=== PATIENT | female | born 1935 | race Caucasian/White ===

== ENCOUNTER 2017-08-29 09:04 | Inpatient (IN) | payer OTHER, BC ==
[2017-08-29] VITALS (7 sets, daily range): BP systolic 142–162; BP diastolic 59–100
[~2017-08-29] VITALS: Ht 154.9 cm; Wt 103.9 kg
--- NOTE | ~2017-08-29 | HC ---
[facility] [place] [address] CONSULTATION Name: CHADWICK COTA Room #: 355-P [facility] IN ..#: [id number] Admission: 08/29/17 Attend Phys: Scooter Reardon MD Discharge: Date of : 35 Report #: [id number] THIS REPORT FOR: //name// CC: Scooter Garnica DATE OF SERVICE: 08/29/2017 CHIEF COMPLAINT: Ulcerations bilateral lower extremities. HISTORY OF PRESENT ILLNESS: This is an 81-year-old female patient who is admitted with a history of known coronary artery disease and recent substernal chest pain. She is also noted to have multiple ulcerations on the lower extremities. I have been asked to see her with regard to wound care. PAST MEDICAL HISTORY: Positive for coronary artery disease, hypertension, hypercholesterolemia, cholecystectomy, hysterectomy, tonsillectomy. ALLERGIES: INCLUDE NORPACE, ENALAPRIL, LIPITOR, ZOCOR, ERYTHROMYCIN, DIGOXIN, VALACYCLOVIR, GABAPENTIN, METFORMIN, LEVAQUIN, ALL FORMS OF TAPE, GEMFIBROZIL, FENOFIBRATE, PROPRANOLOL, INDOCIN, ELAVIL, DOXEPIN, PROMETHAZINE. SOCIAL HISTORY: No history of alcohol or tobacco use. FAMILY HISTORY: Positive for cancer and a perceived stroke. REVIEW OF SYSTEMS: CONSTITUTIONAL: The patient denies fever, chills or weight loss. NEUROLOGICAL: The patient denies focal weakness, numbness, or tingling. EYES: The patient denies visual changes, redness or drainage. ENT: The patient denies earache, nasal drainage, or sore throat. CARDIOVASCULAR: The patient has had recent chest pain, although does not have any presently. Denies palpitations or diaphoresis. PULMONARY: The patient denies cough or shortness of breath. GASTROINTESTINAL: The patient denies nausea, vomiting, diarrhea, or abdominal pain. ORTHOPEDIC: The patient notes some ulcerations of both lower extremities with swelling. Other systems in a 14-point review of systems are negative. PHYSICAL EXAMINATION: VITAL SIGNS: At this time include pulse 88, respirations 16, blood pressure 162/100, temperature 98.1. GENERAL: This is a chronically ill-appearing female patient, appears to be in minimal distress. HEENT: Normocephalic. NECK: Supple. [address] [address] CONSULTATION Name: CHADWICK COTA Room #: 355[facility] IN .R.#: [id number] Admission: 08/29/17 Attend Phys: Scooter Reardon MD Discharge: Date of : 35 Report #: [id number] LUNGS: Clear. HEART: Regular rhythm. ABDOMEN:. Bowel sounds present. EXTREMITIES: Examination of the lower extremities demonstrate 2+ to 3+ edema bilaterally. There is minimal erythema. She has multiple ulcerations on the dorsal aspect of the right foot and great toe as well as the left anterolateral ankle. These all appear to be relatively superficial and showing some signs of epithelization. There is no evidence of obvious infection at this time. CLINICAL IMPRESSION: 1. Ulcerations, bilateral lower extremities that appear to be venous stasis type ulcerations. 2. Lower extremity edema, likely venous insufficiency, with a more predominant component of lymphedema. 3. Coronary artery disease. RECOMMENDATIONS: At this point in time, we will recommend topical Xeroform gauze to the areas that are open, followed by Kerlix and Naman wraps from toes to knees to provide gentle compression and edema reduction. The patient is agreeable to current plan of care. We will recommend nutritional support to maximize wound healing. Continue all current medications. <ELECTRONICALLY SIGNED> By: Khai Evangelista MD 08/30/17 0755 [id number] 08 Khai Evangelista MD /nt
--- NOTE | ~2017-08-29 | EKG ---
[address] [address] ELECTROCARDIOGRAM REPORT Name: COTATIRSOCass Flores Room #: 355-[facility] IN .R.#: [id number] Admission: 08/29/17 Attend Phys: Scotoer Reardon MD Discharge: Date of : 35 Report #: [id number] THIS REPORT FOR: //name// [facility] Test Date: 2017-08-29 Test Time: 13:24:28 Pat Name: CHADWICK COTA Department: Room: 355 Gender: F Nurses Director: Nilson LEE : 1935 Requested By: Gisella Gorman Order Number: [id number] MD: Eloy Oliver Measurements Intervals [place] Rate: 90 P: 34 CA: 168 QRS: 21 QRSD: 84 T: 157 QT: 363 QTc: 444 Interpretive Statements Sinus rhythm Abnormal R-wave progression, early transition Borderline repolarization abnormality Compared to ECG 08/14/2016 06:29:49 Atrial premature complex(es) no longer present Electronically Signed On 09-01-2017 13:23:02 CDT by Eloy Oliver [email or web address] <ELECTRONICALLY SIGNED> By: Eloy Oliver MD, [facility] 09/01/17 1323 1324 1324 Eloy Oliver MD, [facility] /EPI
--- NOTE | ~2017-08-29 | 2DMMODE ---
[facility] [address] [place] [address] 2 D/M-MODE ECHOCARDIOGRAM Name: CHADWICK COTA Room #: 355-P [facility] IN [facility]#: [id number] Admission: 08/29/17 Attend Phys: Scooter Reardon MD Discharge: Date of : 35 Date of Service: 09/03/17 1220 Report #: [id number] THIS REPORT FOR: //name// APPROVED REPORT Study performed: 09/03/2017 10:56:40 EXAM: Comprehensive 2D, Doppler, and color-flow Echocardiogram Patient Location: Bedside Room #: [facility] Status: routine BSA: 1.98 HR: 62 bpm BP: 186/78 mmHg Other Information Study Quality: Adequate Indications Diabetes CAD Hypertension/HDD 2D Dimensions RVDd: 36.53 mm LVOT Diam: 19.52 (18-24mm) IVC: 25.00 mm Volumes Left Atrial Volume (Systole) Single Plane 4CH: 127.61 mL Single Plane 2CH: 138.96 mL LA ESV Index: 74.00 mL/m2 Aortic Valve AoV Peak Rambo.: 2.10 m/s AO Peak Gr.: 17.70 mmHg LVOT Max P.36 mmHg AO Mean Gr.: 9.35 mmHg LVOT Mean P.49 mmHg AO V2 Mean: 1.44 m/s LVOT Max V: 1.04 m/s AO V2 VTI: 51.99 cm LVOT Mean V: 0.73 m/s SHARRON (VTI): 1.50 cm2 LVOT V1 VTI: 26.16 cm SHARRON Vmax: 1.48 cm2 SV (LVOT): 78.21 mL Mitral Valve [facility] [email or web address] [place] [address] 2 D/M-MODE ECHOCARDIOGRAM Name: CIPRIANOTIRSOCass Flores Room #: 355-P [facility]#: [id number] Admission: 08/29/17 Attend Phys: Scooter Reardon MD Discharge: Date of : 35 Date of Service: 09/03/17 1220 Report #: [id number] E/A Ratio: 1.3 MV Decel. Time: 137.88 ms MV E Max Rambo.: 1.14 m/s MV A Rambo.: 0.91 m/s MV PHT: 39.99 ms IVRT: 101.50 ms Pulmonary Valve PV Peak Rambo.: 1.03 m/s PV Peak Gr.: 4.26 mmHg Pulmonary Vein P Vein S: 0.52 m/s P Vein A: 0.32 m/s P Vein D: 0.48 m/s P Vein A Dur.: 143.0 msec P Vein S/D Ratio: 1.08 Tricuspid Valve TR Peak Rambo.: 3.35 m/s TR Peak Gr.: 44.86 mmHg PA Pressure: 55.00 mmHg Left Ventricle The left ventricle is normal size. There is normal left ventricular wall thickness. The left ventricular systolic function is normal. The left ventricular ejection fraction is within the normal range. LVEF is 55-60%. The left ventricular diastolic function is normal. Right Ventricle The right ventricle is normal size. The right ventricular systolic function is normal. Atria Left atrium is dilated. Right atrium is dilated. Aortic Valve The aortic valve is normal in structure. Aortic valve is calcified. Trace aortic regurgitation. Mild aortic stenosis. Mitral Valve The mitral valve is normal in structure. Mild mitral regurgitation. No evidence of mitral valve stenosis. Tricuspid Valve The tricuspid valve is normal in structure. There is mild tricuspid regurgitation. Estimated PAP 55 mmHg. There is moderate pulmonary hypertension. [address] [address] 2 D/M-MODE ECHOCARDIOGRAM Name: CHADWICK COTA Room #: 355-P [facility] IN [facility]#: [id number] Admission: 08/29/17 Attend Phys: Scooter Reardon MD Discharge: Date of : 35 Date of Service: 09/03/17 1220 Report #: [id number] Pulmonic Valve The pulmonary valve is normal in structure. There is no pulmonic valvular regurgitation. Great Vessels The aortic root is normal in size. IVC is dilated and collapses <50% with inspiration. Pericardium There is no pericardial effusion. <Conclusion> The left ventricle is normal size. LVEF is 55-60%. The left ventricular diastolic function is normal. The right ventricle is normal size. Left atrium is dilated. Right atrium is dilated. The aortic valve is normal in structure. Aortic valve is calcified. Mild aortic stenosis. Mild aortic stenosis. Mild mitral regurgitation. There is mild tricuspid regurgitation. Estimated PAP 55 mmHg. There is moderate pulmonary hypertension. IVC is dilated and collapses <50% with inspiration. There is no pericardial effusion. <ELECTRONICALLY SIGNED> By: Jose Sweet MD, FACC 09/03/17 1220 1220 1220 Jose Sweet MD, FACC /INF
--- NOTE | ~2017-08-29 | EKG ---
[address] [address] ELECTROCARDIOGRAM REPORT Name: CHAWDICK COTA Room #: 355-[facility] IN .R.#: [id number] Admission: 08/29/17 Attend Phys: Scooter Reardon MD Discharge: 09/03/17 Date of : 35 Report #: [id number] THIS REPORT FOR: //name// [facility] Test Date: 2017-09-03 Test Time: 09:08:21 Pat Name: CHADWICK COTA Department: Room: 355 Gender: F Senior Counsel Commercial: : 1935 Requested By: Mike Odell Order Number: [id number] MD: Eloy Oliver Measurements Intervals [place] Rate: 63 P: 49 CO: 173 QRS: 19 QRSD: 114 T: -11 QT: 492 QTc: 504 Interpretive Statements Sinus rhythm Nonspecific ST and T wave abnormality Prolonged QT interval Compared to ECG 08/29/2017 13:24:28 Early R-wave progression no longer present Electronically Signed On 09-03-2017 19:24:23 CDT by Eloy Oliver [email or web address] <ELECTRONICALLY SIGNED> By: Eloy Oliver MD, [facility] 09/03/17 1924 [id number] 0908 Eloy Oliver MD, [facility] /EPI
[~2017-08-29 09:04] MED LIST: ACETAMINOPHEN-1 EAC1; ALLOPURINOL 10100 M1 PO; AMLODIPINE BESY10 MG PO; ASPIR 8181 MG PO; ASPIRIN325 PO; CARDIZEM CD240 MG PO; CELEXA 20 MG TA20 M1 PO; CELEXA20 MG PO; CIPRO250 M1 PO; CLOPIDOGREL75 MG PO; CRESTOR5 MG PO; EFFIENT10 MG PO; HYDROCODONE-AP1 EAC6 PO; KLOR-CON 1010 MEQ PO; LASIX 20 MG TAB20 MG PO; LASIX 40 MG TAB40 M1 PO; LEVOTHYROXIN0.088 MG PO; LIVALO2 MG PO; LOPRESSOR 50 MG50 M1 PO; LOPRESSOR25 PO; METOPROLOL SUCC25 M1 PO; NITROGLYCERIN0.4 MG SUBLING; NITROQUICK0.4 MG SL; ONDANSETRON HCL4 M2 PO; PANTOPRAZOLE SO40 M1 PO; PRILOSEC 20 MG20 MG PO; PRINIVIL20 MG PO; PRINIVIL5 MG PO; PROTONIX40 M2 PO; SYNTHROID75 MCG PO; ZYRTEC10 M2 PO
[2017-08-29 12:45] LABS: ABSOLUTE NEUTROPHILS 12.7 thou/uL (1.4-8.2); BASOPHILS 0.6 % (0.0-2.0); EOSINOPHILS 0.9 % (0.0-3.0); HEMOGLOBIN 7.7 gm/dL (12.0-15.0); LYMPHOCYTES 5.2 % (24.0-44.0); MCH 28.9 pg (26.0-34.0); MCHC 31.9 g/dL (28.0-37.0); MCV 90.4 fL (80.0-100.0); PLATELET COUNT 286 thou/uL (150-400); POLYS 88.3 % (36.0-66.0); RBC 2.65 mil/uL (4.20-5.00); RDW 15.8 % (10.5-14.5); WBC 14.4 thou/uL (4.0-11.0)
[2017-08-29 13:03] LABS: PROTIME 10.5 Seconds (9.3-11.4)
[2017-08-29 13:32] LABS: CALCIUM 8.5 mg/dL (8.5-10.1); CREATININE 1.4 mg/dL (0.6-1.0)
[2017-08-29 13:50] LABS: CHOLESTEROL 108 mg/dL (<200); HDL CHOLESTEROL 49 mg/dL (>40); LDL CHOLESTEROL 39 mg/dL (<100); TC:HDL 2.2 Ratio (Not establshd); TRIGLYCERIDE 102 mg/dL (<150); TROPONIN-I < 0.04 ng/mL (<0.06); VLDL 20 mg/dL (<40)
[2017-08-29 22:20] LABS: HEMATOCRIT 24.7 % (37.0-47.0)
[2017-08-30] VITALS (9 sets, daily range): BP systolic 112–145; BP diastolic 44–75
[2017-08-30 00:28] LABS: HEMATOCRIT 21.7 % (37.0-47.0); HEMOGLOBIN 7.2 gm/dL (12.0-15.0)
[2017-08-30 06:19] LABS: HEMOGLOBIN 6.6 gm/dL (12.0-15.0)
[2017-08-30 12:47] LABS: HEMATOCRIT 18.6 % (37.0-47.0); HEMOGLOBIN 6.1 gm/dL (12.0-15.0)
[2017-08-30 23:13] LABS: HEMATOCRIT 21.9 % (37.0-47.0); HEMOGLOBIN 7.4 gm/dL (12.0-15.0)
[2017-08-31] VITALS (7 sets, daily range): BP systolic 89–144; BP diastolic 31–65
[2017-09-01 03:45] VITALS: BP 140/60
[2017-09-01 07:59] LABS: HEMATOCRIT 21.9 % (37.0-47.0); HEMOGLOBIN 7.4 gm/dL (12.0-15.0); MCH 30.3 pg (26.0-34.0); MCHC 33.7 g/dL (28.0-37.0); RBC 2.43 mil/uL (4.20-5.00); RDW 15.8 % (10.5-14.5); WBC 8.8 thou/uL (4.0-11.0)
[2017-09-01 08:10] LABS: ALBUMIN 2.1 g/dL (3.4-5.0); CREATININE 1.4 mg/dL (0.6-1.0); POTASSIUM 3.5 mmol/L (3.5-5.1); TOTAL BILIRUBIN 0.3 mg/dL (<0.1-1.0); TOTAL PROTEIN 5.3 g/dL (6.4-8.2)
[2017-09-01 08:21] VITALS: BP 162/86
[2017-09-01 11:21] VITALS: BP 153/62
[2017-09-01 15:31] VITALS: BP 138/53
[2017-09-01 19:05] VITALS: BP 158/46
[2017-09-02 03:58] VITALS: BP 157/70
[2017-09-02 05:54] LABS: HEMATOCRIT 23.3 % (37.0-47.0); HEMOGLOBIN 7.8 gm/dL (12.0-15.0); MCH 30.2 pg (26.0-34.0); MCHC 33.5 g/dL (28.0-37.0); RBC 2.59 mil/uL (4.20-5.00); WBC 10.7 thou/uL (4.0-11.0)
[2017-09-02 06:03] LABS: ALBUMIN 2.2 g/dL (3.4-5.0); CALCIUM 8.2 mg/dL (8.5-10.1); CREATININE 1.2 mg/dL (0.6-1.0); POTASSIUM 3.6 mmol/L (3.5-5.1); TOTAL BILIRUBIN 0.3 mg/dL (<0.1-1.0); TOTAL PROTEIN 5.7 g/dL (6.4-8.2)
[2017-09-02 07:30] VITALS: BP 154/63
[2017-09-02 12:17] VITALS: BP 187/67
[2017-09-02 17:36] VITALS: BP 184/91
[2017-09-02 19:55] VITALS: BP 171/79
[2017-09-02 23:35] VITALS: BP 149/71
[2017-09-03 04:25] VITALS: BP 163/65
[2017-09-03 06:48] LABS: ABSOLUTE NEUTROPHILS 6.6 thou/uL (1.4-8.2); BASOPHILS 0.6 % (0.0-2.0); EOSINOPHILS 7.3 % (0.0-3.0); HEMATOCRIT 24.5 % (37.0-47.0); HEMOGLOBIN 8.2 gm/dL (12.0-15.0); LYMPHOCYTES 13.7 % (24.0-44.0); MCH 30.2 pg (26.0-34.0); MCHC 33.5 g/dL (28.0-37.0); MCV 89.9 fL (80.0-100.0); MONOCYTES 8.6 % (1.0-8.0); PLATELET COUNT 244 thou/uL (150-400); POLYS 69.8 % (36.0-66.0); RBC 2.73 mil/uL (4.20-5.00); WBC 9.4 thou/uL (4.0-11.0)
[2017-09-03 06:55] LABS: CALCIUM 8.8 mg/dL (8.5-10.1); CREATININE 1.2 mg/dL (0.6-1.0); POTASSIUM 3.6 mmol/L (3.5-5.1)
[2017-09-03 07:54] VITALS: BP 186/78
[2017-09-03 11:26] VITALS: BP 183/92
[2017-09-03 15:07] VITALS: BP 166/65
[2018-02-13] MEDS ORDERED: MELATONIN3 MG PO (07:56)
[2018-02-13] MEDS ORDERED: PRINIVIL20 MG PO (07:56)
[2018-02-13] MEDS ORDERED: PEPCID20 MG PO (08:00)
[2018-02-13] MEDS ORDERED: OCUVITE EYE +1 EACH PO (08:00)
[2018-02-13] MEDS ORDERED: ONDANSETRON HCL4 M2 PO (08:01)
[2018-02-13] MEDS ORDERED: BACTRIM DS TAB1 EACH PO (08:01)
[2018-02-13] MEDS ORDERED: NORVASC5 MG PO (08:03)
[2018-02-13] MEDS ORDERED: LISINOPRIL20 MG PO (08:03)
[2018-02-13] MEDS ORDERED: NORCO 5-325 TA1 EACH PO (08:04)
[2018-02-14] MEDS ORDERED: CLOPIDOGREL75 MG PO (08:08)
[2018-02-14] MEDS ORDERED: ASPIR-TRIN325 MG PO (08:10)
== END 2017-09-03 18:19 | DRG 377 ==
LOC: 3W 09:04
PROVIDERS: Hospitalist; Internal Medicine Gastroenterology; Nurse Practitioner
PROC: 30233N1 Transfusion of Nonautologous Red Blood Cells into Peripheral Vein, Percutaneous Approach (ICD-10-PCS; principal; 2017-08-30)
PROC: 02HV33Z Insertion of Infusion Device into Superior Vena Cava, Percutaneous Approach (ICD-10-PCS; 2017-08-30)
DX: K57.33 Diverticulitis of large intestine without perforation or abscess with bleeding (principal); E43 Unspecified severe protein-calorie malnutrition; N39.0 Urinary tract infection, site not specified; N17.9 Acute kidney failure, unspecified; Z68.41 Body mass index [BMI] 40.0-44.9, adult; D62 Acute posthemorrhagic anemia; L03.116 Cellulitis of left lower limb; I87.2 Venous insufficiency (chronic) (peripheral); I25.10 Atherosclerotic heart disease of native coronary artery without angina pectoris; M19.90 Unspecified osteoarthritis, unspecified site; E03.9 Hypothyroidism, unspecified; E11.42 Type 2 diabetes mellitus with diabetic polyneuropathy; I89.0 Lymphedema, not elsewhere classified; I50.9 Heart failure, unspecified; I48.0 Paroxysmal atrial fibrillation; I11.0 Hypertensive heart disease with heart failure; E66.9 Obesity, unspecified; S09.90XA Unspecified injury of head, initial encounter; W18.39XA Other fall on same level, initial encounter; Y93.89 Activity, other specified; Y92.89 Other specified places as the place of occurrence of the external cause; Y99.8 Other external cause status; Z88.0 Allergy status to penicillin; Z91.010 Allergy to peanuts; Z79.899 Other long term (current) drug therapy; Z90.49 Acquired absence of other specified parts of digestive tract; Z88.1 Allergy status to other antibiotic agents; Z88.8 Allergy status to other drugs, medicaments and biological substances; Z82.3 Family history of stroke; Z90.710 Acquired absence of both cervix and uterus; Z95.5 Presence of coronary angioplasty implant and graft
CPT/HCPCS: 10879; 27000

== ENCOUNTER 2018-03-23 18:22 | Inpatient (IN) | payer OTHER, BC ==
[~2018-03-23] VITALS: Ht 154.9 cm; Wt 113.4 kg
--- NOTE | ~2018-03-23 | P ---
[facility] [place] [address] PROCEDURE REPORT Name: CHADWICK COTA Mark Room #: 203[facility] M.R.#: [id number] Admission: 03/23/18 Attend Phys: Link Lizarraga Discharge: Date of : 35 Report #: [id number] THIS REPORT FOR: //name// CC: Ward Ramirez BRIEF HISTORY: The patient is an 82-year-old woman with rectal bleeding. Colonoscopy recently completed revealed blood throughout the entire colon plus blood in the ileum. Therefore, small bowel endoscopy was recommended for further evaluation. PREOPERATIVE DIAGNOSIS: Gastrointestinal bleeding. POSTOPERATIVE DIAGNOSIS: Moderately large hiatus hernia with a paraesophageal component. MEDICATIONS: Deep sedation with propofol per anesthesia. SPECIMEN: None. ESTIMATED BLOOD LOSS: None. PROCEDURE: Small bowel endoscopy with deployment of a video small bowel capsules. FINDINGS: During the colonoscopy, we found evidence of blood in the small bowel and therefore during that procedure staff obtained consent from family for upper endoscopic evaluation. PHYSICAL EXAMINATION: With the patient in the left lateral decubitus position, the Olympus pediatric colonoscope was introduced under direct vision into the oropharynx. It was guided through the esophagus. Esophageal mucosa was normal. The GE junction was at about 33 cm and somewhat foreshortened and tortuous distally secondary to large hiatus hernia. Squamocolumnar junction was unremarkable. No strictures or masses were seen. The scope was advanced and she had a large hiatus hernia. Upon retroflexion, there was also a paraesophageal component and the hernia slides up along the side of the esophagus. The mucosa and hernia was unremarkable. No blood was seen. AVMs were not seen. Mass lesions were not seen. The scope was advanced into the distal stomach, was examined on end view as well as retroflexed views. The hiatus hernia was seen. No other abnormalities were identified. No blood was seen. No ulcers or AVMs were seen. Pylorus was normal. Examination of duodenal bulb revealed normal mucosa without evidence of bleeding or bleeding lesions. The scope was advanced to the entire duodenal sweep, beyond the ligament of Treitz and deeply into the jejunum. The scope was advanced its [facility] [address] [place] [address] PROCEDURE REPORT Name: CIPRIANOCHADWICK Mark Room #: 203[facility] .R.#: [id number] Admission: 03/23/18 Attend Phys: Link Lizarraga Discharge: Date of : 35 Report #: [id number] entire length and we obtained very good insertion to the jejunum today. At that point, the scope was withdrawn and careful circumferential views were obtained. The prep was good. The mucosa was within normal limits, normal vascular pattern, normal light reflex. Blood was not identified on this examination. No neoplastic or polypoid lesions were seen. AVMs were not seen. The scope was withdrawn. The patient tolerated the procedure well. Subsequently, the scope was fitted with the capsule delivering system and the prepared capsule was advanced endoscopically with an upper endoscope into the second portion of duodenum. The capsule was released. Good images were obtained. Scope was withdrawn. DISPOSITION: The patient with GI bleeding. Colonoscopy revealed evidence of blood in the distal small bowel. We will follow up on capsule study. Continue to monitor hemoglobin. We will discuss further with Dr. Ward Martínez. <ELECTRONICALLY SIGNED> By: Sanjeev Young MD 03/27/18 1220 1440 1947 Sanjeev Young MD /nt
--- NOTE | ~2018-03-23 | H ---
[facility] [address] [place] [address] HISTORY AND PHYSICAL Name: CHADWICK COTA Room #: 239-P ADM IN M.R.#: [id number] Admission: 03/23/18 Attend Phys: Link Lizarraga Discharge: Date of : 35 Report #: [id number] THIS REPORT FOR: //name// CC: Sharri Lizarraga ATTENDING PHYSICIAN: Link Lizarraga MD PRIMARY CARE PHYSICIAN: Unknown. CHIEF COMPLAINT: Rectal bleeding. HISTORY OF PRESENT ILLNESS: The patient is an 82-year-old female who was sent from [facility] for rectal bleeding. She apparently had been having mary blood per rectum 3 times since earlier this morning. Her first stool was blood mixed with stool, but after that was just this straight blood with some blood clots. She is on aspirin and Plavix due to significant cardiac history with multiple stents, as well as renal stents. She had an episode in ER at [place] when she got up to the commode, had another episode of rectal bleeding, but then had brief syncopal episode. She complains of feeling dizzy when she is sitting up. At baseline, she is nonambulatory. She was actually scheduled to have colonoscopy with her GI physician on 03/28 because they were concerned for colovaginal fistula. She has had GI bleed in the past, most recently in August of this year, in which she did require blood transfusion, as well as remote episode of GI bleeding about 5 or 6 years ago. She is feeling nauseated, but has not been having any vomiting. She is currently resting comfortably, in no acute distress. PAST MEDICAL HISTORY: Hypothyroidism, hypertension, hyperlipidemia, coronary artery disease, atrial fibrillation, GERD, diabetes type 2, which is diet controlled, depression, peripheral neuropathy, and chronic kidney disease stage 3. PAST SURGICAL HISTORY: Coronary stents times 6, bilateral renal stents, appendectomy, hysterectomy, tonsillectomy, left carpal tunnel release, bladder repair, bilateral breast lipoma removal, cholecystectomy, and left ankle repair. ALLERGIES: Extensive and include TYLENOL, AMPICILLIN, CHLORZOXAZONE, GABAPENTIN, GEMFIBROZIL, PENICILLINS, QUININE, ATORVASTATIN, ENALAPRIL, PROMETHAZINE, PROPOXYPHENE, DIGOXIN, ERYTHROMYCIN, FENOPROFEN CALCIUM, INDOMETHACIN, METFORMIN, MACRODANTIN, PAPAVERINE, RAMIPRIL, NORPACE, DOXEPIN, PROPRANOLOL, VALACYCLOVIR, IBUPROFEN, TERRAMYCIN, ELAVIL. HOME MEDICATIONS: Bactrim, unknown frequency; Plavix 75 mg daily, pitavastatin 4 mg daily, nitro p.r.n., Toprol-XL 25 mg daily, Norvasc 5 mg daily, lisinopril 20 mg daily, aspirin 325 mg daily, [place] 5/325 one tab q. 4 hours p.r.n. pain, Celexa 40 mg at bedtime, Lasix 40 mg p.o. daily, Zofran p.r.n., Pepcid 10 mg at [address] [address] HISTORY AND PHYSICAL Name: CHADWICK COTA Room #: 239-P [facility] IN ..#: [id number] Admission: 03/23/18 Attend Phys: Link Lizarraga Discharge: Date of : 35 Report #: [id number] bedtime, Protonix 40 mg daily, levothyroxine 88 mcg daily, allopurinol 100 mg b.i.d., melatonin 3 mg p.o. daily. SOCIAL HISTORY: The patient is mostly wheelchair bound. She states she can use a walker to transfer short distance. She is a never smoker, denies any alcohol or drug use. She has been living in a longterm facility for the last year. She is a full code. FAMILY HISTORY: Her sister had a stroke and her brother had of multiple blood clots. There is no blood or bleeding disorders. REVIEW OF SYSTEMS: A 12-point review of systems was reviewed with the patient, otherwise negative unless stated in the HPI. PHYSICAL EXAMINATION: GENERAL: The patient is an alert female in no acute distress. VITAL SIGNS: Temperature is 36.7, heart rate 83, respirations 16, blood pressure 124/56, oxygen 100% on 2 L. HEENT: PERRLA. Sclerae are nonicteric. Oral mucosa is pink and moist. NECK: Supple, no JVD noted. CARDIAC: Normal S1, S2. No murmurs, rubs or gallops. RESPIRATORY: Breath sounds are clear in bilateral upper lobes, diminished in the bases. Breathing is nonlabored. ABDOMEN: Obese, soft, and nondistended. She is slightly tender in the lower abdomen. Bowel sounds are positive. VASCULAR: 2+ bilateral lower extremity edema. Pedal pulses are 2+. NEUROLOGIC: The patient is alert and oriented times 3. Speech is clear. She is moving all extremities equally. There is some generalized lower extremity weakness, but no focal weakness noted. MUSCULOSKELETAL: She does have deformity of the left ankle. SKIN: Pale, but intact with a few scattered bruises, no open wounds or rashes. LABORATORY DATA AND DIAGNOSTICS: Blood work obtained at [place] showed a WBC of 9.8. Initial hemoglobin was 7.9 and a few hours later was down to 6.9, platelets 324. Sodium 136, potassium 4.1, BUN 49, creatinine 1.2, and glucose is 118. LFTs are within normal limits. Lipase is 19. TSH level is 5.13. INR 1.1. CT of the abdomen showed no free air or obstruction. There was a large hiatal hernia. There was mild acute diverticulitis in the proximal sigmoid colon. There was redemonstration of the finding of suspicion for colocolonic or colovesical or colovaginal fistula and there is a left posterolateral margin of the urinary bladder, which may involve this area of fistula. ASSESSMENT AND PLAN: 1. Gastrointestinal bleed. Hemoglobin upon arrival is now down to 5.7. Unfortunately, she has been unable to receive any blood transfusions since she has an antibody. She has now been typed and screened and we are awaiting [address] [address] HISTORY AND PHYSICAL Name: CHADWICK COTA Room #: 239-P [facility] IN [facility].#: [id number] Admission: 03/23/18 Attend Phys: Link Lizarraga Discharge: Date of : 35 Report #: [id number] units of blood. We will then follow hemoglobin and hematocrit levels q. 6 hours. She has not had any further bleeding since arrival, so we will hold off on any bleeding scan. Gastrointestinal is consulted. Because the CT did mention possible diverticulitis, we will add Cipro and Flagyl. 2. Acute blood loss anemia. The patient is being transfused with 2 units of blood once we are able to get correct blood with antibodies. Her last known hemoglobin was 9.0 in 01/2018. 3. Possible diverticulitis. The patient was given Invanz at [place]. We will change antibiotics to Cipro and Flagyl. Rectal bleeding may be due to diverticular bleed. 4. Possible rectal fistula. This was mentioned on CT. The patient states she has been told in the past that there may be a fistula there and she was supposed to have an outpatient colonoscopy. 5. Diabetes type 2, currently diet controlled. Since she is n.p.o., we will add sliding scale insulin and follow Accu-Cheks. 6. Deep venous thrombosis prophylaxis. Place sequential compression devices. We will continue to follow the patient closely throughout the hospitalization and make changes based on clinical status. <ELECTRONICALLY SIGNED> By: MOISES Viramontes 03/25/18 0220 0442 0541 MOISES Viramontes /nt
--- NOTE | ~2018-03-23 | P ---
[facility] [place] [address] PROCEDURE REPORT Name: CHADWICK COTA Mark Room #: 203-P [facility] IN M.R.#: [id number] Admission: 03/23/18 Attend Phys: Link Lizarraga Discharge: Date of : 35 Report #: [id number] THIS REPORT FOR: //name// CC: Ward Ramirez BRIEF HISTORY: The patient is an 82-year-old woman who presented with rectal bleeding. She had an episode of rectal bleeding this August and a CTA and nuclear medicine scans were nondiagnostic. She has required multiple transfusions. A CT suggests a colovesical fistula. She is known to have diverticular disease and was treated for diverticulitis in January of this year per her report. She has continued to have rectal bleeding. PREOPERATIVE DIAGNOSIS: Recurrent rectal bleeding. POSTOPERATIVE DIAGNOSES: 1. Colon polyps. 2. Moderately severe diverticulosis coli. 3. Blood within the terminal ileum suggestive of proximal gastrointestinal bleeding source. MEDICATIONS: Deep sedation with propofol for anesthesia. SPECIMENS: 1. Colon polyp from proximal ascending colon. 2. Cecal polyp. ESTIMATED BLOOD LOSS: 3 mL related to procedure. PROCEDURE: Colonoscopy to cecum and terminal ileum with snare polypectomy and biopsy. FINDINGS: Prior to propofol sedation, procedure of colonoscopy discussed with the patient. Family was present. They all indicate they desire that we proceed. DESCRIPTION OF PROCEDURE: With the patient in the left lateral decubitus position, digital examination was completed. Anal verge was covered with blood. A digital exam revealed dark blood on the examining digit. Subsequently, the Olympus video colonoscope was introduced in the rectum, advanced under direct vision. Immediately upon entering the rectum, liquid blood and scattered clots were seen. We very carefully advanced the scope through irrigating vigorously with the water jet as well as Mylicon solution. We were successful in advancing the scope into the proximal colon into the cecum. It was noted there was red to dark red blood throughout the entire colon including the cecum. We were able to [facility] [address] [place] [address] PROCEDURE REPORT Name: CHADWICK COTA Room #: 203-P [facility] IN M.R.#: [id number] Admission: 03/23/18 Attend Phys: Lnik Lizarraga Discharge: Date of : 35 Report #: [id number] identify the ileocecal valve and advance the scope across the ileocecal valve and in the distal terminal ileum. Darkish red blood was seen as well. We advanced the scope probably 25 cm or more into the distal ileum and blood was seen. However, an active bleeding site could not be identified. At that point, the scope was slowly withdrawn and careful circumferential views were obtained. Again, there was blood in the ileum, but an active bleeding site was not seen. The scope was withdrawn in the cecum and was cleaned up as well as possible and a 4 mm sessile polyp was seen and removed by cold biopsy forceps. Scope was further withdrawn in the proximal ascending colon, a flat 8 mm polyp was seen and removed by cold snare polypectomy. Again, the entire colon was coated with blood and clot. As we withdrew the scope, we cleaned up as well as possible and a large amount of bloody material was removed. However, in some areas, particularly the left colon, there were clots which prohibited complete suctioning. At no time during this exam, did we identify active bleeding. The scope was withdrawn into the left colon, in particular the sigmoid colon. There was moderately severe diverticular disease. Again, active bleeding was not seen. There was also evidence of a colovesical fistula on CT, but a fistula was not clearly identified on exam today. Also, she has a Barrera catheter in. We did not observe any blood or air going to do her Barrera bag. It was noted that there was moderate edema of the folds in the distal sigmoid. A CT suggested diverticulitis, but there was no endoscopic evidence of diverticulitis on exam today. The scope was withdrawn in the rectum and was cleaned up as well as possible. There was some clot in the rectum. Upon retroflexion, no abnormalities were seen. Scope was withdrawn and the patient tolerated the procedure well. DISPOSITION: The patient with GI bleeding. Our initial thought was she was having a diverticular bleed. However, with the findings on colonoscopy, there is evidence of upper GI source. Therefore, we will proceed with small bowel endoscopy at this time from above. Also, consider deploying an M2 capsule if bleeding site is not identified. We will discuss with Dr. Martínez. <ELECTRONICALLY SIGNED> By: Sanjeev Young MD 03/27/18 1220 1416 29 Sanjeev Young MD /nt
--- NOTE | ~2018-03-23 | EKG ---
[address] [address] ELECTROCARDIOGRAM REPORT Name: CHADWICK COTA Room #: 203- ADM IN M.R.#: [id number] Admission: 03/23/18 Attend Phys: Link Lizarraga Discharge: Date of : 35 Report #: [id number] THIS REPORT FOR: //name// [facility] Test Date: 2018-03-27 Test Time: 09:30:37 Pat Name: CHADWICK COTA Department: Room: 203 P Gender: F Hat Binder: Nilson LEE : 1935 Requested By: Lorelei Fried Order Number: [id number] MD: Gerson Reveles Measurements Intervals Morrill Rate: 72 P: 19 MO: 186 QRS: 13 QRSD: 80 T: 30 QT: 500 QTc: 548 Interpretive Statements Sinus rhythm Abnormal R-wave progression, early transition Compared to ECG 02/14/2018 07:56:08 ST (T wave) deviation no longer present Electronically Signed On 03-28-2018 8:15:48 CDT by Gerson Reveles [email or web address] <ELECTRONICALLY SIGNED> By: Gerson Reveles MD 03/28/18814 9 9 Gerson Reveles MD /JOSE
--- NOTE | ~2018-03-23 | PATH ---
[facility] [address] [place] [address] PATHOLOGY RPT PROCEDURE Name: CIPRIANOTIRSOCass Flores Room #: 203-P [facility] IN M.R.#: [id number] Admission: 03/23/18 Date of : 35 Discharge: 03/31/18 Report #: [id number] Path Case #: [id number] [facility] Accession Number: [id number] . 01 Material submitted: . PART A: PROXIMAL ASCENDING COLON POLYP PART B: CECAL POLYP . 01 Clinical history: . Pre-op diagnosis: GI bleed Post-op diagnosis: Colon polyp, diverticulosis . 02 Diagnosis: A. Polyp, proximal ascending colon polyp, endoscopic biopsy: - Tubular adenoma. - Negative for high-grade dysplasia. . B. Polyp, cecal polyp, endoscopic biopsy: - Tubular adenoma. - Negative for high-grade dysplasia. . (IUV:nahomy; 03/27/2018) MBR/03/27/2018 . 02 Electronically signed: . Renetta Burris MD, Pathologist NPI- [id number] . 01 Gross description: . A. The specimen is received in formalin, labeled "Chadwick Cota, proximal ascending colon polyp". Received is a segment of pale lopez soft tissue measuring 0.7 cm in maximum dimensions. The specimen is submitted entirely in cassette A1. . B. The specimen is received in formalin, labeled "Chadwick Cota, cecal polyp biopsy". Received is a segment of pale lopez soft tissue measuring 0.3 cm in maximum dimensions. The specimen is submitted entirely in cassette B1. (CAA; 03/26/2018) QAC/QAC . 02 Pathologist provided ICD-10: D12.2, D12.0 . 02 CPT . 644537, 329308 Specimen Comment: A courtesy copy of this report has been sent to Specimen Comment: [phone], , [place] [address] PATHOLOGY RPT PROCEDURE Name: CHADWICK COTA Room #: 203-P [facility] IN M.R.#: [id number] Admission: 03/23/18 Date of : 35 Discharge: 03/31/18 Report #: [id number] Path Case #: [id number] Specimen Comment: Report sent to ,DR CORTES / DR LECHUGA Specimen Comment: A duplicate report has been generated due to demographic updates. Performed at: [address], [place], [place] [id number] MD Naveen Owen MD Phone: [phone] Performed at: [address] [id number] MD Renetta Burris MD Phone: [phone]
[~2018-03-23 18:22] MED LIST changes: +ASPIR-TRIN325 MG PO; +BACTRIM DS TAB1 EACH PO; +LISINOPRIL20 MG PO; +MELATONIN3 MG PO; +NORCO 5-325 TA1 EACH PO; +NORVASC5 MG PO; +OCUVITE EYE +1 EACH PO; +PEPCID20 MG PO
[2018-03-23 22:45] VITALS: BP 124/56
[2018-03-23 23:00] VITALS: BP 114/44
[2018-03-23 23:11] LABS: HEMATOCRIT 17.3 % (37.0-47.0); HEMOGLOBIN 5.7 gm/dL (12.0-15.0)
[2018-03-24] VITALS (26 sets, daily range): BP systolic 97–157; BP diastolic 29–68
[2018-03-24 02:06] LABS: URINE BILIRUBIN NEGATIVE (Negative); URINE BLOOD 2+ (Negative); URINE CLARITY CLEAR; URINE COLOR YELLOW; URINE GLUCOSE-RANDOM* NEGATIVE (Negative); URINE KETONES NEGATIVE (Negative); URINE PROTEIN (DIPSTICK) NEGATIVE (Negative); URINE SPECIFIC GRAVITY 1.015 (1.005-1.035); URINE UROBILINOGEN 0.2 E.U./dl (0.2-1.0)
[2018-03-24 02:08] LABS: URINE LEUKOCYTES-REFLEX 2+ (Negative); URINE NITRITE-REFLEX POSITIVE (Negative)
[2018-03-24 02:18] LABS: SQUAMOUS 0-3 Few /LPF (0-3)
[2018-03-24 02:19] LABS: CASTS None Seen /LPF (None Seen); CRYSTALS None Seen /LPF (None Seen); URINE RBC 0-2 Rare /HPF (0-2); URINE WBC-REFLEX 6-15 Few /HPF (0-5)
[2018-03-24 07:09] LABS: HEMATOCRIT 21.8 % (37.0-47.0); HEMOGLOBIN 7.4 gm/dL (12.0-15.0); MCH 30.8 pg (26.0-34.0); MCHC 33.8 g/dL (28.0-37.0); MCV 91.1 fL (80.0-100.0); RBC 2.39 mil/uL (4.20-5.00); RDW 15.6 % (10.5-14.5); WBC 8.8 thou/uL (4.0-11.0)
[2018-03-24 07:21] LABS: ALBUMIN 1.9 g/dL (3.4-5.0); CALCIUM 7.7 mg/dL (8.5-10.1); CREATININE 1.2 mg/dL (0.6-1.0); POTASSIUM 4.1 mmol/L (3.5-5.1); TOTAL BILIRUBIN 0.3 mg/dL (<0.1-1.0); TOTAL PROTEIN 4.7 g/dL (6.4-8.2)
[2018-03-24 17:14] LABS: HEMATOCRIT 19.8 % (37.0-47.0); HEMOGLOBIN 6.6 gm/dL (12.0-15.0)
[2018-03-25] VITALS (33 sets, daily range): BP systolic 64–165; BP diastolic 22–72
[2018-03-25 04:53] LABS: MCV 90.6 fL (80.0-100.0); WBC 9.4 thou/uL (4.0-11.0)
[2018-03-25 04:54] LABS: HEMOGLOBIN 6.7 gm/dL (12.0-15.0); MCH 30.9 pg (26.0-34.0); MCHC 34.2 g/dL (28.0-37.0); RBC 2.15 mil/uL (4.20-5.00); RDW 14.9 % (10.5-14.5)
[2018-03-25 04:58] LABS: CALCIUM 7.5 mg/dL (8.5-10.1); MAGNESIUM 1.7 mg/dL (1.8-2.4); POTASSIUM 4.1 mmol/L (3.5-5.1)
[2018-03-25 05:03] LABS: HEMATOCRIT 19.5 % (37.0-47.0)
[2018-03-25 12:35] LABS: HEMATOCRIT 26.8 % (37.0-47.0)
[2018-03-25 12:39] LABS: HEMOGLOBIN 9.1 gm/dL (12.0-15.0)
[2018-03-26 03:29] LABS: HEMATOCRIT 21.7 % (37.0-47.0); HEMOGLOBIN 7.4 gm/dL (12.0-15.0); MCH 30.3 pg (26.0-34.0); MCHC 34.1 g/dL (28.0-37.0); MCV 88.8 fL (80.0-100.0); RBC 2.44 mil/uL (4.20-5.00); RDW 15.1 % (10.5-14.5); WBC 10.4 thou/uL (4.0-11.0)
[2018-03-26 03:39] LABS: ALBUMIN 1.8 g/dL (3.4-5.0); CALCIUM 7.9 mg/dL (8.5-10.1); PHOSPHORUS 2.5 mg/dL (2.5-4.9); POTASSIUM 3.5 mmol/L (3.5-5.1)
[2018-03-26 04:31] VITALS: BP 121/37
[2018-03-26 08:55] VITALS: BP 114/36
[2018-03-26 12:15] VITALS: BP 141/53
[2018-03-26 15:21] VITALS: BP 148/46
[2018-03-26 15:45] LABS: HEMATOCRIT 23.6 % (37.0-47.0); HEMOGLOBIN 8.2 gm/dL (12.0-15.0)
[2018-03-26 17:11] VITALS: BP 148/46
[2018-03-26 19:47] VITALS: BP 152/59
[2018-03-27] VITALS (7 sets, daily range): BP systolic 101–137; BP diastolic 44–79
[2018-03-27 03:24] LABS: HEMOGLOBIN 6.7 gm/dL (12.0-15.0); MCH 30.8 pg (26.0-34.0); MCHC 34.4 g/dL (28.0-37.0); MCV 89.4 fL (80.0-100.0); RBC 2.17 mil/uL (4.20-5.00); RDW 14.9 % (10.5-14.5); WBC 7.7 thou/uL (4.0-11.0)
[2018-03-27 03:28] LABS: HEMATOCRIT 19.4 % (37.0-47.0)
[2018-03-27 13:09] LABS: % SATURATION 8 % (20-39); IRON 13 ug/dL (50-170); TIBC 155 ug/dL (250-450)
[2018-03-27 13:25] LABS: FOLIC ACID 16.5 ng/mL (8.6-58.9)
[2018-03-27 17:01] LABS: HEMATOCRIT 22.6 % (37.0-47.0); HEMOGLOBIN 7.7 gm/dL (12.0-15.0)
[2018-03-28 00:05] VITALS: BP 163/82
[2018-03-28 03:44] LABS: HEMATOCRIT 24.1 % (37.0-47.0)
[2018-03-28 05:07] VITALS: BP 159/72
[2018-03-28 07:50] VITALS: BP 159/75
[2018-03-28 11:28] VITALS: BP 128/76
[2018-03-28 15:17] VITALS: BP 160/60
[2018-03-28 19:53] VITALS: BP 181/79
[2018-03-28 19:55] LABS: HEMATOCRIT 26.2 % (37.0-47.0)
[2018-03-29 04:56] VITALS: BP 180/73
[2018-03-29 07:35] VITALS: BP 160/85
[2018-03-29 11:30] VITALS: BP 168/83
[2018-03-29 15:20] VITALS: BP 157/85
[2018-03-29 19:21] VITALS: BP 165/72
[2018-03-30 04:26] VITALS: BP 153/57
[2018-03-30 04:38] LABS: HEMATOCRIT 26.2 % (37.0-47.0); HEMOGLOBIN 8.8 gm/dL (12.0-15.0); MCH 30.4 pg (26.0-34.0); MCHC 33.8 g/dL (28.0-37.0); RBC 2.91 mil/uL (4.20-5.00); RDW 15.4 % (10.5-14.5); WBC 9.4 thou/uL (4.0-11.0)
[2018-03-30 04:46] LABS: ALBUMIN 2.2 g/dL (3.4-5.0); CALCIUM 7.8 mg/dL (8.5-10.1); CREATININE 0.9 mg/dL (0.6-1.0); PHOSPHORUS 2.7 mg/dL (2.5-4.9); POTASSIUM 3.8 mmol/L (3.5-5.1)
[2018-03-30 07:25] VITALS: BP 169/67
[2018-03-30 11:35] VITALS: BP 158/63
[2018-03-30 15:30] VITALS: BP 173/68
[2018-03-30 19:35] VITALS: BP 171/65
[2018-03-31 00:33] VITALS: BP 157/66
[2018-03-31 04:36] VITALS: BP 174/62
[2018-03-31 06:51] LABS: HEMATOCRIT 24.2 % (37.0-47.0); HEMOGLOBIN 8.1 gm/dL (12.0-15.0); MCH 30.1 pg (26.0-34.0); MCHC 33.3 g/dL (28.0-37.0); MCV 90.3 fL (80.0-100.0); RBC 2.68 mil/uL (4.20-5.00); RDW 15.4 % (10.5-14.5); WBC 7.4 thou/uL (4.0-11.0)
[2018-03-31 07:00] LABS: CALCIUM 7.7 mg/dL (8.5-10.1); CREATININE 0.9 mg/dL (0.6-1.0); MAGNESIUM 1.2 mg/dL (1.8-2.4); POTASSIUM 3.7 mmol/L (3.5-5.1)
[2018-03-31 07:30] VITALS: BP 166/76
[2018-03-31] MEDS ORDERED: AUGMENTIN 875-1 EACH PO (10:39)
[2018-03-31 12:30] VITALS: BP 160/71
[2018-03-31 15:45] VITALS: BP 169/80
== END 2018-03-31 19:03 | DRG 377 ==
LOC: ICU 18:22 → 2N 03-25 15:23
PROVIDERS: Hospitalist; Internal Medicine; Internal Medicine Gastroenterology; Nurse Practitioner Acute Care; Specialist
PROC: 30233N1 Transfusion of Nonautologous Red Blood Cells into Peripheral Vein, Percutaneous Approach (ICD-10-PCS; principal; 2018-03-24)
PROC: 0DBK8ZZ Excision of Ascending Colon, Via Natural or Artificial Opening Endoscopic (ICD-10-PCS; 2018-03-25)
PROC: 0DBH8ZZ Excision of Cecum, Via Natural or Artificial Opening Endoscopic (ICD-10-PCS; 2018-03-25)
PROC: 0DJ08ZZ Inspection of Upper Intestinal Tract, Via Natural or Artificial Opening Endoscopic (ICD-10-PCS; 2018-03-25)
DX: K57.31 Diverticulosis of large intestine without perforation or abscess with bleeding (principal); E43 Unspecified severe protein-calorie malnutrition; D62 Acute posthemorrhagic anemia; Z68.42 Body mass index [BMI] 45.0-49.9, adult; K63.2 Fistula of intestine; N39.0 Urinary tract infection, site not specified; E46 Unspecified protein-calorie malnutrition; E03.9 Hypothyroidism, unspecified; D12.2 Benign neoplasm of ascending colon; D12.0 Benign neoplasm of cecum; E78.5 Hyperlipidemia, unspecified; I25.10 Atherosclerotic heart disease of native coronary artery without angina pectoris; I12.9 Hypertensive chronic kidney disease with stage 1 through stage 4 chronic kidney disease, or unspecified chronic kidney disease; K21.9 Gastro-esophageal reflux disease without esophagitis; K44.9 Diaphragmatic hernia without obstruction or gangrene; E11.42 Type 2 diabetes mellitus with diabetic polyneuropathy; M19.90 Unspecified osteoarthritis, unspecified site; E66.01 Morbid (severe) obesity due to excess calories; M62.84 Sarcopenia; I48.0 Paroxysmal atrial fibrillation; E53.8 Deficiency of other specified B group vitamins; G47.00 Insomnia, unspecified; E83.42 Hypomagnesemia; M81.0 Age-related osteoporosis without current pathological fracture; B96.20 Unspecified Escherichia coli [E. coli] as the cause of diseases classified elsewhere; E11.22 Type 2 diabetes mellitus with diabetic chronic kidney disease; N18.3 Chronic kidney disease, stage 3 (moderate); F32.9 Major depressive disorder, single episode, unspecified; Z99.3 Dependence on wheelchair; Z95.5 Presence of coronary angioplasty implant and graft; Z90.49 Acquired absence of other specified parts of digestive tract; Z90.710 Acquired absence of both cervix and uterus; Z79.82 Long term (current) use of aspirin; Z79.899 Other long term (current) drug therapy; Z88.1 Allergy status to other antibiotic agents; Z88.0 Allergy status to penicillin; Z88.8 Allergy status to other drugs, medicaments and biological substances; Z82.3 Family history of stroke; Z83.2 Family history of diseases of the blood and blood-forming organs and certain disorders involving the immune mechanism
CPT/HCPCS: 10078; 10081; 27000; 62110; 62900; 70005

== ENCOUNTER 2019-07-05 14:43 | Inpatient (IN) | payer OTHER, BC ==
[~2019-07-05] VITALS: Ht 152.4 cm; Wt 112.5 kg
[~2019-07-05 14:43] MED LIST changes: +AUGMENTIN 875-1 EACH PO
[2019-07-05 16:20] VITALS: BP 179/77
[2019-07-05] MEDS ORDERED: SERTRALINE HCL100 MG PO (17:26)
[2019-07-05] MEDS ORDERED: MECLIZINE HCL25 M1 PO (17:28)
[2019-07-05] MEDS ORDERED: ARTIFICIAL TEAR1510 EA. EYE (17:33)
--- NOTE | 2019-07-05 18:58 | NUR ---
pt arrived to ccu 200 at 1605, assessed, vss, R AC peripheral line sl, started by EMS, pt A+OX4, ORIENTED TO ROOM, HOW TO USE CALL LIGHT, AND STAFF, PT VERBALIZED UNDERSTANDING. DR WILLS IN TO SEE PT, EXTERNAL CATH APPLIED PT IS INCONTINENT, CONSENTS REVIEWED AND SIGNED, CALL LIGHT IN PT'S HAND, WILL MONITOR
[2019-07-05 19:11] VITALS: BP 170/67
[2019-07-05 23:32] VITALS: BP 157/65
--- NOTE | 2019-07-06 03:02 | NUR ---
ASSUMED CARE FROM DAY SHIFT PT RESP IN BED INCONINTENT OF URINE WITH EXTERNAL FEMALE CATH.PT CHANGED BRYAN CARE GIVEN , DISUCSSED PLAN OF CARE AND VERBALIZED UNDERSTANDING AND AGREEEABLE. DNIES CHEST PAIN. C/O GENERAL PAIN , SPECIAL POLICE OFFICER SHOWS NSR. PT RESTED WELL THROUHGOUT HOURLY ROUNDS. ULTRAM GIVEN PO FORPAIN.
[2019-07-06 03:10] VITALS: BP 153/59
[2019-07-06 05:24] LABS: ALBUMIN 2.9 g/dL (3.4-5.0); ANION GAP 10 mmol/L (7-16); BUN 24 mg/dL (7-18); CALCIUM 9.1 mg/dL (8.5-10.1); CHLORIDE 104 mmol/L (98-107); CO2 26 mmol/L (21-32); CREATININE 1.6 mg/dL (0.6-1.0); GLUCOSE 99 mg/dL (74-106); PHOSPHORUS 3.8 mg/dL (2.5-4.9); POTASSIUM 4.3 mmol/L (3.5-5.1); SODIUM 140 mmol/L (136-145); TROPONIN-I <0.06 ng/mL (<0.06)
[2019-07-06 07:10] VITALS: BP 178/59
[2019-07-06 14:45] VITALS: BP 145/51
--- NOTE | 2019-07-06 14:58 | 2DMMODE ---
[facility] [place] [address] 2 D/M-MODE ECHOCARDIOGRAM Name: CHADWICK COTA Room #: 200-I ADM IN [facility].#: [id number] Admission: 07/05/19 Attend Phys: Reji Loepz MD Discharge: Date of : 35 Report #: [id number] THIS REPORT FOR: //name// APPROVED REPORT Study performed: 07/06/2019 12:43:09 EXAM: Comprehensive 2D, Doppler, and color-flow Echocardiogram Patient Location: Bedside Room #: 200 Status: routine BSA: 2.05 HR: 66 bpm BP: 178/59 mmHg Rhythm: NSR Other Information Study Quality: Adequate Indications Diabetes CAD Chest Pain Hypertension/HDD 2D Dimensions RVDd: 40.14 mm IVSd: 10.93 (7-11mm) LVOT Diam: 18.94 (18-24mm) LVDd: 48.19 mm PWd: 10.53 (7-11mm) Ascending Ao: 33.72 (22-36mm) LVDs: 32.76 (25-40mm) Aortic Root: 33.08 mm IVC: 11.00 mm Volumes Left Atrial Volume (Systole) Single Plane 4CH: 147.96 mL Single Plane 2CH: 71.27 mL LA ESV Index: 55.00 mL/m2 Aortic Valve AoV Peak Rambo.: 2.01 m/s AO Peak Gr.: 16.22 mmHg LVOT Max P.79 mmHg AO Mean Gr.: 8.44 mmHg LVOT Mean P.14 mmHg AO V2 Mean: 1.33 m/s LVOT Max V: 1.19 m/s AO V2 VTI: 54.35 cm LVOT Mean V: 0.82 m/s SHARRON (VTI): 1.74 cm2 LVOT V1 VTI: 33.48 cm [facility] [place] [address] 2 D/M-MODE ECHOCARDIOGRAM Name: CHADWICK COTA Room #: 200-I [facility] IN ..#: [id number] Admission: 07/05/19 Attend Phys: Reji Lopez MD Discharge: Date of : 35 Report #: [id number] SHARRON Vmax: 1.66 cm2 SV (LVOT): 94.32 mL Mitral Valve E/A Ratio: 1.6 MV Decel. Time: 144.90 ms MV E Max Rambo.: 1.33 m/s MV A Rambo.: 0.82 m/s MV PHT: 42.02 ms IVRT: 83.04 ms Pulmonary Valve PV Peak Rambo.: 0.99 m/s PV Peak Gr.: 3.95 mmHg Pulmonary Vein P Vein S: 0.47 m/s P Vein A: 0.32 m/s P Vein D: 0.44 m/s P Vein A Dur.: 124.6 msec P Vein S/D Ratio: 1.07 Tricuspid Valve TR Peak Rambo.: 3.34 m/s TR Peak Gr.: 44.52 mmHg PA Pressure: 50.00 mmHg Left Ventricle The left ventricle is normal size. There is normal LV segmental wall motion. There is normal left ventricular wall thickness. The left ventricular systolic function is normal. The left ventricular ejection fraction is within the normal range. LVEF is 55-60%. The left ventricular diastolic function is abnormal. Right Ventricle The right ventricle is normal size. The right ventricular systolic function is normal. Atria Left atrium is dilated. Right atrium is dilated. Aortic Valve The aortic valve is normal in structure. Aortic valve is calcified. Trace to mild aortic regurgitation. Mild aortic stenosis.1.6cm2 Mitral Valve The mitral valve is normal in structure. Mild mitral regurgitation. No evidence of mitral valve stenosis. [facility] [address] [place] [address] 2 D/M-MODE ECHOCARDIOGRAM Name: CHADWICK COTA Room #: 200-I [facility] IN [facility]#: [id number] Admission: 07/05/19 Attend Phys: Reji Lopez MD Discharge: Date of : 35 Report #: [id number] Tricuspid Valve The tricuspid valve is normal in structure. There is mild tricuspid regurgitation. Estimated PAP 50 mmHg. There is moderate pulmonary hypertension. Pulmonic Valve The pulmonary valve is normal in structure. There is no pulmonic valvular regurgitation. Great Vessels The aortic root is normal in size. IVC is normal in size and collapses >50% with inspiration. Pericardium There is no pericardial effusion. <Conclusion> The left ventricle is normal size. LVEF is 55-60%. The left ventricular diastolic function is abnormal. The right ventricular systolic function is normal. Left atrium is dilated. Right atrium is dilated. The aortic valve is normal in structure. Aortic valve is calcified. Trace to mild aortic regurgitation. Mild aortic stenosis.1.6cm2 Mild mitral regurgitation. There is mild tricuspid regurgitation. Estimated PAP 50 mmHg. There is moderate pulmonary hypertension. The aortic root is normal in size. There is no pericardial effusion. <ELECTRONICALLY SIGNED> By: Jose Sweet MD, FACC 07/06/19 1458 1458 1458 Jose Sweet MD, FACC /INF
--- NOTE | 2019-07-06 16:19 | NUR ---
PT RESIDES AT [facility] FAXED CLINICAL UPDATE TO FACILITY SPOKE WITH HELIO AT FACILITY SHE RECEIVED UPDATE AND THAT WE ANTICIPATE DC TOMORROW. DP TO FOLLOW.
--- NOTE | 2019-07-06 18:41 | NUR ---
ASSUMED CARE 0700, A/OX4, FROM LTC/ASSITED LIVING. VS STABLE, DENIES SOB, DENIES CHEST PAIN. CHRONIC SHOULDER PAIN MANAGED WITH MEDICATIONS, XRAY OF SHOULD SHOW NO ACUTE FX. STRESS TEST COMPLETED TODAY, TRANSFERS TO COMMODE OR WHEELCHAIR WITH AX1, EXTERNAL FEMALE CATH IN PLACE, INCONTINENT OF BLADDER DUE TO LASIX, BM TODAY. VALERIE MISHRA TOMORROW. FALL PRECAUTIONS IN PLACE. CALLS FOR ASSISTANCE
[2019-07-06 19:53] VITALS: BP 169/58
[2019-07-07 00:23] VITALS: BP 179/69
[2019-07-07 03:56] LABS: URINE BILIRUBIN NEGATIVE (Negative); URINE BLOOD TRACE (Negative); URINE CLARITY CLEAR; URINE COLOR YELLOW; URINE GLUCOSE-RANDOM* NEGATIVE (Negative); URINE KETONES NEGATIVE (Negative); URINE LEUKOCYTES 3+ (Negative); URINE NITRITE NEGATIVE (Negative); URINE PROTEIN (DIPSTICK) NEGATIVE (Negative); URINE SPECIFIC GRAVITY 1.015 (1.005-1.035); URINE UROBILINOGEN 0.2 E.U./dl (0.2-1.0)
[2019-07-07 03:57] LABS: CASTS None Seen /LPF (None Seen); MUCUS 0-3 Light strn/LPF (None Seen); SQUAMOUS 0-3 Few /LPF (0-3); URINE RBC None Seen /HPF (0-2)
[2019-07-07 03:58] LABS: BACTERIA >30 Many /HPF (None Seen); CRYSTALS None Seen /LPF (None Seen)
[2019-07-07 05:01] VITALS: BP 176/63
--- NOTE | 2019-07-07 06:18 | NUR ---
PT C/O LEFT SHOULDER PAIN PRN PAIN MEDS GIVEN NEEDED, PT REPOSITIONED NEEDED, C/O SIGNS OF UTI THAT WAS PAINFUL, UA SENT TO LAB, ORDERS RECEIVED FOR TYLENOL AND ANTIBIOTIC, BP REMAIN ELEVATED, WILL CON'T TO MONITOR PER PPOC.
[2019-07-07 07:33] VITALS: BP 148/77
[2019-07-07] MEDS ORDERED: ACETAMINOPHEN325 M1 PO (09:05)
[2019-07-07] MEDS ORDERED: CEFUROXIME500 MG PO (09:12)
[2019-07-07 09:13] VITALS: BP 148/77
--- NOTE | 2019-07-07 09:48 | NUR ---
AAOX4. CALM, COOPERATIVE. UTI NOTED. SR PER TELE. BEING DISCHARGED TO FACILITY TODAY BY [facility]. WILL CONTINUE TO FOLLOW CLOSELY.
--- NOTE | 2019-07-07 10:24 | NUR ---
patient to dc today to [facility]. Utilized [employer] transport trip #[id number]. [facility] provided wc with plan to return wc to [facility]. Updated Mccone and son of timeframe for dc. Chart copy ordered. Faxed orders. RN to call report no further needs.
[2019-07-07] MEDS ORDERED: MELOXICAM7.5 MG PO (10:36)
== END 2019-07-07 12:15 | DRG 558 ==
LOC: 2N 14:43
PROVIDERS: Hospitalist; ADMIT Internal Medicine
DX: M62.84 Sarcopenia (principal); N17.9 Acute kidney failure, unspecified; Z68.42 Body mass index [BMI] 45.0-49.9, adult; G90.50 Complex regional pain syndrome I, unspecified; N39.0 Urinary tract infection, site not specified; S46.012A Strain of muscle(s) and tendon(s) of the rotator cuff of left shoulder, initial encounter; R07.9 Chest pain, unspecified; M19.90 Unspecified osteoarthritis, unspecified site; M81.0 Age-related osteoporosis without current pathological fracture; E66.9 Obesity, unspecified; E78.5 Hyperlipidemia, unspecified; E11.9 Type 2 diabetes mellitus without complications; I25.10 Atherosclerotic heart disease of native coronary artery without angina pectoris; E03.9 Hypothyroidism, unspecified; G62.9 Polyneuropathy, unspecified; K57.90 Diverticulosis of intestine, part unspecified, without perforation or abscess without bleeding; I70.1 Atherosclerosis of renal artery; Z96.0 Presence of urogenital implants; I12.9 Hypertensive chronic kidney disease with stage 1 through stage 4 chronic kidney disease, or unspecified chronic kidney disease; N18.9 Chronic kidney disease, unspecified; E78.00 Pure hypercholesterolemia, unspecified; I35.0 Nonrheumatic aortic (valve) stenosis; G47.00 Insomnia, unspecified; K21.9 Gastro-esophageal reflux disease without esophagitis; Y93.01 Activity, walking, marching and hiking; F32.9 Major depressive disorder, single episode, unspecified; Z88.1 Allergy status to other antibiotic agents; Z88.0 Allergy status to penicillin; Z91.018 Allergy to other foods; Z91.048 Other nonmedicinal substance allergy status; Z95.5 Presence of coronary angioplasty implant and graft; Z79.82 Long term (current) use of aspirin; Z79.891 Long term (current) use of opiate analgesic; Z79.899 Other long term (current) drug therapy; Z90.89 Acquired absence of other organs; Z90.49 Acquired absence of other specified parts of digestive tract; Z90.710 Acquired absence of both cervix and uterus; Y92.89 Other specified places as the place of occurrence of the external cause; Y99.8 Other external cause status
CPT/HCPCS: 10081

== ENCOUNTER → 2019-12-04 | Outpatient (CLI) | payer OTHER, BC ==
[~2019-12-04] MED LIST changes: +ACETAMINOPHEN325 M1 PO; +ARTIFICIAL TEAR1510 EA. EYE; +CEFUROXIME500 MG PO; +MECLIZINE HCL25 M1 PO; +MELOXICAM7.5 MG PO; +SERTRALINE HCL100 MG PO
== END ==
LOC: SJCVC 16:02
PROVIDERS: ATTEND Internal Medicine Cardiovascular Disease
DX: R00.1 Bradycardia, unspecified (principal); R94.31 Abnormal electrocardiogram [ECG] [EKG]; I25.10 Atherosclerotic heart disease of native coronary artery without angina pectoris; I13.0 Hypertensive heart and chronic kidney disease with heart failure and stage 1 through stage 4 chronic kidney disease, or unspecified chronic kidney disease; N18.3 Chronic kidney disease, stage 3 (moderate); I50.9 Heart failure, unspecified; I70.1 Atherosclerosis of renal artery; I65.23 Occlusion and stenosis of bilateral carotid arteries; E78.00 Pure hypercholesterolemia, unspecified; M19.90 Unspecified osteoarthritis, unspecified site; E03.9 Hypothyroidism, unspecified; Z79.899 Other long term (current) drug therapy; Z79.82 Long term (current) use of aspirin; Z87.19 Personal history of other diseases of the digestive system

== ENCOUNTER → 2020-09-13 | Outpatient (CLI) | payer OTHER, BC | LOC: SJCVCIMAG 07-27 07:38 | PROVIDERS: ATTEND Internal Medicine Cardiovascular Disease | DX: I08.2 Rheumatic disorders of both aortic and tricuspid valves (principal); R94.31 Abnormal electrocardiogram [ECG] [EKG]; T82.858A Stenosis of other vascular prosthetic devices, implants and grafts, initial encounter; I11.9 Hypertensive heart disease without heart failure; N28.1 Cyst of kidney, acquired; I70.1 Atherosclerosis of renal artery; I25.10 Atherosclerotic heart disease of native coronary artery without angina pectoris; E78.00 Pure hypercholesterolemia, unspecified; E11.9 Type 2 diabetes mellitus without complications; I48.0 Paroxysmal atrial fibrillation; I65.23 Occlusion and stenosis of bilateral carotid arteries; I27.20 Pulmonary hypertension, unspecified; E78.5 Hyperlipidemia, unspecified; E03.9 Hypothyroidism, unspecified; M19.90 Unspecified osteoarthritis, unspecified site; Z90.49 Acquired absence of other specified parts of digestive tract; Z90.710 Acquired absence of both cervix and uterus; Z95.828 Presence of other vascular implants and grafts; Z88.8 Allergy status to other drugs, medicaments and biological substances; Z88.0 Allergy status to penicillin; Z79.82 Long term (current) use of aspirin; Z79.899 Other long term (current) drug therapy; Z87.19 Personal history of other diseases of the digestive system; Z86.16 Personal history of COVID-19; Y83.8 Other surgical procedures as the cause of abnormal reaction of the patient, or of later complication, without mention of misadventure at the time of the procedure; Y92.89 Other specified places as the place of occurrence of the external cause ==

== ENCOUNTER → 2021-05-08 | Outpatient (CLI) | payer OTHER, BC | LOC: SJCVC 09:32 | PROVIDERS: ATTEND Internal Medicine Cardiovascular Disease | DX: I25.10 Atherosclerotic heart disease of native coronary artery without angina pectoris (principal); I70.1 Atherosclerosis of renal artery; E78.00 Pure hypercholesterolemia, unspecified; Z87.19 Personal history of other diseases of the digestive system; I65.23 Occlusion and stenosis of bilateral carotid arteries; I27.20 Pulmonary hypertension, unspecified; I48.0 Paroxysmal atrial fibrillation; E78.5 Hyperlipidemia, unspecified; D64.9 Anemia, unspecified; E03.9 Hypothyroidism, unspecified; N18.30 Chronic kidney disease, stage 3 unspecified; N39.0 Urinary tract infection, site not specified; R94.31 Abnormal electrocardiogram [ECG] [EKG]; I13.0 Hypertensive heart and chronic kidney disease with heart failure and stage 1 through stage 4 chronic kidney disease, or unspecified chronic kidney disease; E11.22 Type 2 diabetes mellitus with diabetic chronic kidney disease; M19.90 Unspecified osteoarthritis, unspecified site; Z79.899 Other long term (current) drug therapy; Z79.82 Long term (current) use of aspirin; Z88.8 Allergy status to other drugs, medicaments and biological substances ==